=== PATIENT | female | born 1940 | race Caucasian/White ===

== ENCOUNTER → 2019-04-06 12:58 | Outpatient (CLI) | payer MEDICARE, BC ==
[2013-04-17 06:18] VITALS: BMI 19.9
[~2019-04-06 12:58] MED LIST: BAYER CHEWABLE81 MG PO; COREG 3.1253.125 MG GT; LEVSIN/ANASP0.125 MG PO; MAALOX ADVANCE355 ML; MULTI-DAY VITAM1 TAB PO; PEPTO-BISMOL262 M1 PO; PRAVACHOL40 MG PO; VITAMIN D2000 UNIT PO
== END | disposition home or self-care (01) ==
LOC: D.NM 12:58
PROVIDERS: ATTEND Clinical Nurse Specialist Adult Health
DX: R10.9 Unspecified abdominal pain (principal)